=== PATIENT | female | born 1955 | race Caucasian/White ===

== ENCOUNTER 2016-10-09 17:34 | Inpatient (IN) ==
[2016-10-09 18:30] LABS: Bilirubin,Urine Small (Negative); Blood,Urine Large (Negative); Clarity,Urine Cloudy (Clear); Color,Urine Dark Yellow (Yellow); Glucose,Urine (UA) >=1000 mg/dL (Normal); Ketones,Urine Trace mg/dL (Negative); Leukocyte Esterase,Urine Moderate (Negative); Nitrite,Urine Negative (Negative); PH,Urine 5.5 pH Units (5.0-8.0); Protein,Urine 100 mg/dL (Neg-Trace); Specific Gravity,Urine 1.021 (1.010-1.025); Urobilinogen,Urine Normal (Normal)
[2016-10-09 18:32] LABS: Bacteria,Urine Many per hpf (None-Few); Hyaline Casts,Urine None Seen per lpf (None-Few); Squamous Epithelial Cell,Urine Many per lpf (None-Few); WBC,Urine 50-100 per hpf (0-3)
[2016-10-09 20:23] LABS: Basophils % 0.2 %; Hematocrit 37.6 % (35.3-44.9); Immature Granulocytes % 0.3 % (0-4); Lymphocytes # 0.7 K/mcL (0.6-4.6); Lymphocytes % 5.3 %; Mean Corpuscular HGB Conc 34.6 g/dL (31.6-35.5); Mean Corpuscular Hemoglobin 30.8 pg (28.0-33.3); Mean Corpuscular Volume 89.1 fL (83.0-100.0); Mean Platelet Volume 9.3 fL (9.4-12.4); Monocytes % 7.5 %; Neutrophils # 11.2 K/mcL (1.6-8.9); Platelet Count 214 K/mcL (140-400); Red Blood Count 4.22 M/mcL (3.82-4.97); Red Cell Distribution Width 12.9 % (11.5-14.5); Segmented Neutrophils % 86.7 %
--- NOTE | 2016-10-09 20:30 | Emergency Department Note ---
Addendum entered and electronically signed by Watson Da Silva DO 10/09/16 22:57: EKG shows sinus rhythm left axis deviation, ventricular rate 80 bpm OK 168 QRS [address] elevations or depressions. Unchanged from previous Original Note: Disposition Clinical Impression: Sepsis, Acute pyelonephritis Disposition: Admitted As Inpatient Condition: Fair Time of Disposition: 22:38 Nausea/Vomiting/Diarrhea HPI - General Chief complaint: ED Nausea/Vomiting/Diarrhea Stated complaint: N/V Time Seen by Provider: 10/09/16 20:27 Source: patient Limitations: no limitations Nursing Notes Reviewed: Yes Vital Signs Reviewed: Yes - History of Present Illness HPI Narrative: 61-year-old female not in some dependent diabetic with 3-4 days of nausea vomiting, right flank pain, and intermittent fever and chills. Patient states that she is woke up with cold sweats for the last few days. She is not taken her temperature but states that she has felt intermittently febrile. She has a history of UTIs, no history of abdominal surgeries. She has right flank pain radiating to her groin on the right side. No history of renal stones. She states her pain is 6 out of 10 and crampy and uncomfortable. Pt Subjective Complaint: nausea, vomiting Onset (ago): day(s) (3) Description of emesis: food contents Description of Diarrhea: water Associated Abdominal Pain: Yes If pain, Location of pain: flank Severity: moderate Severity scale (1-10): 6 Quality: cramping, stabbing Consistency: intermittent Improves with: nothing Worsens with: vomiting Associated symptoms: Reports: myalgias, fever/chills, headaches, nausea/ vomiting. Denies: chest pain, cough, diaphoresis, loss of appetite - Related Data Home Medications Medication Instructions Recorded Confirmed Albuterol Sulfate [Proair Hfa] 2 puff IH Q4H PRN 10/09/16 10/09/16 Celecoxib [Celebrex] 200 mg PO BID 10/09/16 10/09/16 Citalopram [CeleXA] 20 mg PO DAILY 10/09/16 10/09/16 Dapagliflozin Propanediol [Farxiga] 5 mg PO DAILY 10/09/16 10/09/16 Glimepiride [Amaryl] 2 mg PO DAILY 10/09/16 10/09/16 Losartan/Hydrochlorothiazide 1 each PO DAILY 10/09/16 10/09/16 [Hyzaar 100-25 Tablet] Metformin [Glucophage] 500 mg PO BIDWM 10/09/16 10/09/16 Mometasone/Formoterol [Dulera 100 1 puff IH BID 10/09/16 10/09/16 Mcg/5 Mcg Inhaler] Allergies Allergy/AdvReac Type Severity Reaction Status Date / Time No Known Allergies Allergy Verified 10/09/16 18:11 All systems ED: reviewed and negative except as stated. Constitutional: Reports: as per HPI, fever, chills. Denies: weakness Eyes: Denies: eye pain ENT ED: Denies: ear pain, throat pain, congestion Cardiovascular: Denies: chest pain, paroxysmal nocturnal dyspnea Respiratory: Denies: cough, dyspnea Gastrointestinal: Reports: as per HPI, abdominal pain, nausea, vomiting. Denies : diarrhea, hematemesis, melena, hematochezia Genitourinary: Reports: as per HPI, urgency, dysuria, hematuria. Denies: dyspareunia Musculoskeletal: Reports: as per HPI, back pain Neurological: Denies: headache, weakness Past Medical History - Past Medical History Attestation: Yes The following information was validated with the patient. Source: patient Medical history: Reports: COPD, diabetes, fibromyalgia, hypertension Psychiatric history: Reports: no psych history - Social History Smoking Status: Former smoker Smokeless Tobacco Status: No Alcohol use: Reports: none Drug use: Reports: none Physical Exam Constitutional: alert and oriented, in NAD, vital signs reviewed and wnl HEENT: NCAT, sclera anicteric, PERRLA bilaterally, normal external ears bilaterally, nasal septum nondeviated, average dentition, dry mucous mems Neck: normal inspection, neck is supple, trachea midline Resp: normal chest inspection, CTA bilaterally, no resp distress CV: RRR, no m/g/r GI: Mild tenderness to palpation right lower quadrant. No rebound or guarding. Positive CVA tenderness on the right. Soft abdomen bowel sounds 4 quadrants Back: normal inspection, no tenderness to palpation Neuro: A&O3, no gross motor or sensory deficits bilaterally MSK: normal inspection, bilateral UE and LE with normal ROM Psych: normal mood, normal affect Skin: No rashes, skin warm, dry, intact - General Limitations: no limitations General appearance: alert, in no apparent distress Course Course Narrative: 61-year-old female with right flank pain, fever chills afebrile here and not tachycardic however will recheck temperature given that she is low-grade 99.7, labwork ordered at triage show a white blood cell elevation 13,000, and turbid urine and many bacteria too numerous to count blood will also get a CT scan of abdomen to evaluate for nephrolithiasis, reassess giving IV fluids and antiemetics. - Reevaluation(s) Reevaluation #1: Recheck temperature does show 100.9, technically patient meets SIRS criteria with suspected stroke sources right pyelonephritis, no evidence of obstructive uropathy on CAT scan, we will start an IV 2g Ceftriaxone 2 L of IV fluids given , patient does not have hypo-tension, normal lactates will not recheck lactate, Time: 22:37 Vital Signs Temperature 99.6 F 10/09/16 18:08 Pulse Rate 64 10/09/16 18:08 Respiratory Rate 14 10/09/16 18:08 Blood Pressure 119/61 10/09/16 18:08 O2 Sat by Pulse Oximetry 97 10/09/16 18:08 Temperature 100.8 F H 10/11/16 20:56 Pulse Rate 75 10/11/16 20:56 Respiratory Rate 16 10/11/16 20:56 Blood Pressure 152/87 10/11/16 20:56 O2 Sat by Pulse Oximetry 94 L 10/11/16 20:56 Oxygen Delivery Oxygen Delivery Room Air Nausea/Vomiting/Diarrhea - MDM Narrative Medical decision making narrative: 61-year-old female with non-insulin dependent diabetes, leukocytosis, febrile at here for sepsis with sore's presumed right-sided pyelonephritis, negative CT scan started empirically on IV antibiotics for UTI and 2 L of fluids given patient stable at this time, admitted to hospital service - Differential Diagnosis Likely: traveler's diarrhea, clostridium difficile infection, drug-induced nausea and vomitting, dehydration - Medical Records Medical records reviewed: Yes I reviewed the patient's medical records. - Lab Data Lab results reviewed: Yes I reviewed the patient's lab results. Result diagrams: 10/11/16 04:26 10/11/16 04:26 Lab Results 10/09/16 10/09/16 10/09/16 Range/Units 18:20 20:12 20:12 WBC 12.9 H (4.3-11.1) K/mcL RBC 4.22 (3.82-4.97) M/mcL Hgb 13.0 (11.5-15.4) g/dL Hct 37.6 (35.3-44.9) % MCV 89.1 (83.0-100.0) fL MCH 30.8 (28.0-33.3) pg MCHC 34.6 (31.6-35.5) g/dL RDW 12.9 (11.5-14.5) % Plt Count 214 (140-400) K/mcL MPV 9.3 L (9.4-12.4) fL Immature Gran % 0.3 (0-4) % Seg Neutrophils % 86.7 % Lymphocytes % 5.3 % Monocytes % 7.5 % Eosinophils % 0.0 % Basophils % 0.2 % Neutrophils # 11.2 H (1.6-8.9) K/mcL Lymphocytes # 0.7 (0.6-4.6) K/mcL Monocytes # 1.0 (0.0-1.3) K/mcL Eosinophils # 0.0 (0.0-0.6) K/mcL Basophils # 0.0 (0.0-0.2) K/mcL Immature Plt Fraction (1.1-6.1) % Sodium 132 L (136-145) mEq/L Potassium 3.4 L (3.5-4.5) mEq/L Chloride 94 L (98-109) mEq/L Carbon Dioxide 25 (19-29) mEq/L BUN 33 H (7-20) mg/dL Creatinine 1.57 H (0.57-1.11) mg/dL Est GFR ( Amer) 40 L (> 60) Est GFR (Non-Af Amer) 33 L (> 60) BUN/Creatinine Ratio 21 (6-26) Glucose 275 H (70-99) mg/dL Est Mean Plasma Glucose mg/dl Hemoglobin A1c ( - 5.6) % Calculated Osmolality 291 (280-300) Lactic Acid (0.5-2.2) mmol/L Calcium 9.7 (8.6-10.8) mg/dL Magnesium (1.6-2.6) mg/dL Total Bilirubin 1.7 H (0.2-1.2) mg/dL Direct Bilirubin 0.8 H (0.0-0.5) mg/dL Indirect Bilirubin 0.9 (0.0-1.2) mg/dL AST 26 (5-34) Units/L ALT 39 (0-55) Units/L Alkaline Phosphatase 61 (38-126) Units/L Serum Total Protein 7.6 (6.0-8.3) g/dL Albumin 3.7 (3.5-5.0) g/dL Globulin 3.9 H (2.4-3.5) g/dL Albumin/Globulin Ratio 0.9 L (1.1-2.2) Amylase 26 (25-125) Units/L Lipase 18 (8-78) Units/L Urine Color Dark Yellow (Yellow) Urine Clarity Cloudy A (Clear) Urine pH 5.5 (5.0-8.0) pH Units Ur Specific [place] 1.021 (1.010-1.025) Urine Protein 100 H (Neg-Trace) mg/dL Urine Glucose (UA) >=1000 H (Normal) mg/dL Urine Ketones Trace H (Negative) mg/dL Urine Blood Large H (Negative) Urine Nitrite Negative (Negative) Urine Bilirubin Small H (Negative) Urine Urobilinogen Normal (Normal) mg/dL Ur Leukocyte Esterase Moderate H (Negative) Urine Microscopic RBC 5-15 H (0-3) per hpf Urine Microscopic WBC 50-100 H (0-3) per hpf Ur Squamous Epith Cells Many H (None-Few) per lpf Urine Bacteria Many H (None-Few) per hpf Hyaline Casts None Seen (None-Few) per lpf Ur Culture Indicated? YES A (NO) A. baumannii (PCR) (Not Detect) Zaira albicans (PCR) (Not Detect) C. glabrata (PCR) (Not Detect) C. krusei (PCR) (Not Detect) C. parapsilosis (PCR) (Not Detect) C. tropicalis (PCR) (Not Detect) Enterobacteriac sp PCR (Not Detect) E. cloacae complex PCR (Not Detect) Enterococcus sp PCR (Not Detect) E. coli (PCR) (Not Detect) H. influenzae (PCR) (Not Detect) Klebsiella oxytoca PCR (Not Detect) Klebsiella pneumoniae (Not Detect) List. monocytogenes PCR (Not Detect) N. meningitidis (PCR) (Not Detect) Proteus species (PCR) (Not Detect) Serratia marcescens PCR (Not Detect) Staphylococcus sp PCR (Not Detect) Staph aureus (PCR) (Not Detect) mecA-Methicil Res Gene (Not Detect) Streptococcus sp PCR (Not Detect) Group A Strep DNA (Not Detect) Group B Strep (PCR) (Not Detect) Strep pneumoniae (PCR) (Not Detect) P. aeruginosa (PCR) (Not Detect) Kian/B-Vanco Res Genes (Not Detect) KPC (blaKPC) Detect PCR (Not Detect) 10/09/16 10/09/16 10/10/16 Range/Units 21:00 21:00 04:40 WBC (4.3-11.1) K/mcL RBC (3.82-4.97) M/mcL Hgb (11.5-15.4) g/dL Hct (35.3-44.9) % MCV (83.0-100.0) fL MCH (28.0-33.3) pg MCHC (31.6-35.5) g/dL RDW (11.5-14.5) % Plt Count (140-400) K/mcL MPV (9.4-12.4) fL Immature Gran % (0-4) % Seg Neutrophils % % Lymphocytes % % Monocytes % % Eosinophils % % Basophils % % Neutrophils # (1.6-8.9) K/mcL Lymphocytes # (0.6-4.6) K/mcL Monocytes # (0.0-1.3) K/mcL Eosinophils # (0.0-0.6) K/mcL Basophils # (0.0-0.2) K/mcL Immature Plt Fraction (1.1-6.1) % Sodium (136-145) mEq/L Potassium (3.5-4.5) mEq/L Chloride (98-109) mEq/L Carbon Dioxide (19-29) mEq/L BUN (7-20) mg/dL Creatinine (0.57-1.11) mg/dL Est GFR ( Amer) (> 60) Est GFR (Non-Af Amer) (> 60) BUN/Creatinine Ratio (6-26) Glucose (70-99) mg/dL Est Mean Plasma Glucose 140 mg/dl Hemoglobin A1c 6.5 H ( - 5.6) % Calculated Osmolality (280-300) Lactic Acid 1.2 (0.5-2.2) mmol/L Calcium (8.6-10.8) mg/dL Magnesium (1.6-2.6) mg/dL Total Bilirubin (0.2-1.2) mg/dL Direct Bilirubin (0.0-0.5) mg/dL Indirect Bilirubin (0.0-1.2) mg/dL AST (5-34) Units/L ALT (0-55) Units/L Alkaline Phosphatase (38-126) Units/L Serum Total Protein (6.0-8.3) g/dL Albumin (3.5-5.0) g/dL Globulin (2.4-3.5) g/dL Albumin/Globulin Ratio (1.1-2.2) Amylase (25-125) Units/L Lipase (8-78) Units/L Urine Color (Yellow) Urine Clarity (Clear) Urine pH (5.0-8.0) pH Units Ur Specific [place] (1.010-1.025) Urine Protein (Neg-Trace) mg/dL Urine Glucose (UA) (Normal) mg/dL Urine Ketones (Negative) mg/dL Urine Blood (Negative) Urine Nitrite (Negative) Urine Bilirubin (Negative) Urine Urobilinogen (Normal) mg/dL Ur Leukocyte Esterase (Negative) Urine Microscopic RBC (0-3) per hpf Urine Microscopic WBC (0-3) per hpf Ur Squamous Epith Cells (None-Few) per lpf Urine Bacteria (None-Few) per hpf Hyaline Casts (None-Few) per lpf Ur Culture Indicated? (NO) A. baumannii (PCR) Not Detected (Not Detect) Zaira albicans (PCR) Not Detected (Not Detect) C. glabrata (PCR) Not Detected (Not Detect) C. krusei (PCR) Not Detected (Not Detect) C. parapsilosis (PCR) Not Detected (Not Detect) C. tropicalis (PCR) Not Detected (Not Detect) Enterobacteriac sp PCR DETECTED A (Not Detect) E. cloacae complex PCR Not Detected (Not Detect) Enterococcus sp PCR Not Detected (Not Detect) E. coli (PCR) DETECTED A (Not Detect) H. influenzae (PCR) Not Detected (Not Detect) Klebsiella oxytoca PCR Not Detected (Not Detect) Klebsiella pneumoniae Not Detected (Not Detect) List. monocytogenes PCR Not Detected (Not Detect) N. meningitidis (PCR) Not Detected (Not Detect) Proteus species (PCR) Not Detected (Not Detect) Serratia marcescens PCR Not Detected (Not Detect) Staphylococcus sp PCR Not Detected (Not Detect) Staph aureus (PCR) Not Detected (Not Detect) mecA-Methicil Res Gene Not Detected (Not Detect) Streptococcus sp PCR Not Detected (Not Detect) Group A Strep DNA Not Detected (Not Detect) Group B Strep (PCR) Not Detected (Not Detect) Strep pneumoniae (PCR) Not Detected (Not Detect) P. aeruginosa (PCR) Not Detected (Not Detect) Kian/B-Vanco Res Genes Not Detected (Not Detect) KPC (blaKPC) Detect PCR Not Detected (Not Detect) 10/10/16 10/10/16 Range/Units 04:40 04:40 WBC 12.9 H (4.3-11.1) K/mcL RBC 3.73 L (3.82-4.97) M/mcL Hgb 11.3 L D (11.5-15.4) g/dL Hct 33.6 L (35.3-44.9) % MCV 90.1 (83.0-100.0) fL MCH 30.3 (28.0-33.3) pg MCHC 33.6 (31.6-35.5) g/dL RDW 12.9 (11.5-14.5) % Plt Count 188 (140-400) K/mcL MPV 9.6 (9.4-12.4) fL Immature Gran % 0.5 (0-4) % Seg Neutrophils % 87.2 % Lymphocytes % 3.3 % Monocytes % 8.9 % Eosinophils % 0.0 % Basophils % 0.1 % Neutrophils # 11.2 H (1.6-8.9) K/mcL Lymphocytes # 0.4 L (0.6-4.6) K/mcL Monocytes # 1.1 (0.0-1.3) K/mcL Eosinophils # 0.0 (0.0-0.6) K/mcL Basophils # 0.0 (0.0-0.2) K/mcL Immature Plt Fraction 2.2 (1.1-6.1) % Sodium 135 L (136-145) mEq/L Potassium 3.2 L (3.5-4.5) mEq/L Chloride 99 (98-109) mEq/L Carbon Dioxide 24 (19-29) mEq/L BUN 37 H (7-20) mg/dL Creatinine 1.73 H (0.57-1.11) mg/dL Est GFR ( Amer) 36 L (> 60) Est GFR (Non-Af Amer) 30 L (> 60) BUN/Creatinine Ratio 21 (6-26) Glucose 271 H (70-99) mg/dL Est Mean Plasma Glucose mg/dl Hemoglobin A1c ( - 5.6) % Calculated Osmolality 298 (280-300) Lactic Acid (0.5-2.2) mmol/L Calcium 8.7 (8.6-10.8) mg/dL Magnesium 1.7 (1.6-2.6) mg/dL Total Bilirubin (0.2-1.2) mg/dL Direct Bilirubin (0.0-0.5) mg/dL Indirect Bilirubin (0.0-1.2) mg/dL AST (5-34) Units/L ALT (0-55) Units/L Alkaline Phosphatase (38-126) Units/L Serum Total Protein (6.0-8.3) g/dL Albumin (3.5-5.0) g/dL Globulin (2.4-3.5) g/dL Albumin/Globulin Ratio (1.1-2.2) Amylase (25-125) Units/L Lipase (8-78) Units/L Urine Color (Yellow) Urine Clarity (Clear) Urine pH (5.0-8.0) pH Units Ur Specific [place] (1.010-1.025) Urine Protein (Neg-Trace) mg/dL Urine Glucose (UA) (Normal) mg/dL Urine Ketones (Negative) mg/dL Urine Blood (Negative) Urine Nitrite (Negative) Urine Bilirubin (Negative) Urine Urobilinogen (Normal) mg/dL Ur Leukocyte Esterase (Negative) Urine Microscopic RBC (0-3) per hpf Urine Microscopic WBC (0-3) per hpf Ur Squamous Epith Cells (None-Few) per lpf Urine Bacteria (None-Few) per hpf Hyaline Casts (None-Few) per lpf Ur Culture Indicated? (NO) A. baumannii (PCR) (Not Detect) Zaira albicans (PCR) (Not Detect) C. glabrata (PCR) (Not Detect) C. krusei (PCR) (Not Detect) C. parapsilosis (PCR) (Not Detect) C. tropicalis (PCR) (Not Detect) Enterobacteriac sp PCR (Not Detect) E. cloacae complex PCR (Not Detect) Enterococcus sp PCR (Not Detect) E. coli (PCR) (Not Detect) H. influenzae (PCR) (Not Detect) Klebsiella oxytoca PCR (Not Detect) Klebsiella pneumoniae (Not Detect) List. monocytogenes PCR (Not Detect) N. meningitidis (PCR) (Not Detect) Proteus species (PCR) (Not Detect) Serratia marcescens PCR (Not Detect) Staphylococcus sp PCR (Not Detect) Staph aureus (PCR) (Not Detect) mecA-Methicil Res Gene (Not Detect) Streptococcus sp PCR (Not Detect) Group A Strep DNA (Not Detect) Group B Strep (PCR) (Not Detect) Strep pneumoniae (PCR) (Not Detect) P. aeruginosa (PCR) (Not Detect) Kian/B-Vanco Res Genes (Not Detect) KPC (blaKPC) Detect PCR (Not Detect) - Radiology Data Radiology results reviewed: Yes I reviewed the patient's radiology results. Abdomen/Pelvis CT 10/09/16 20:37 IMPRESSION: 1. No acute findings within the abdomen or pelvis. No evidence of obstructive uropathy or appendicitis. 2. Bilateral renal lesions consistent with simple cysts. No follow-up indicated. D/ / 10/09/2016 21:06:17 David Martin MD / diallo Interpreting Provider: David Martin MD Attestation Statement - Attestation Attestation: I examined this patient and my medical decision-making was reviewed with the TINNING MACHINE SET UP OPERATOR/PA/Advanced Practice Nurse/Resident Physician. I agree with the documented findings, disposition and treatment plan as described except to the extent set forth below. 61 yo female presents with concerns of fever, chills, rigor, and flank pain. Pt has mild suprapubic pain with palpation and R CVA tenderness to percussion. CT negative for uretolithiasis or other surgical pathology. +UTI on UA and pt likely has pyelonephritis. Pt likely septic and we started on IV abx and will admit to the hospital.
[2016-10-09] MEDS ORDERED: *HR* HYDROmorphone (PF) 1 MG/ML SYRINGE IV ONE (20:34)
[2016-10-09] MEDS ORDERED: 0.9 % Sodium Chloride 1,000 ML IVC ONE ×2 (20:34→21:58)
[2016-10-09] MEDS ORDERED: Ondansetron 4 MG/2 ML VIAL IV ONE (20:34)
[2016-10-09 20:37] LABS: Albumin 3.7 g/dL (3.5-5.0); Albumin/Globulin Ratio 0.9 (1.1-2.2); Bilirubin,Direct 0.8 mg/dL (0.0-0.5); Bilirubin,Indirect 0.9 mg/dL (0.0-1.2); Bilirubin,Total 1.7 mg/dL (0.2-1.2); Calcium 9.7 mg/dL (8.6-10.8); Globulin 3.9 g/dL (2.4-3.5); Potassium 3.4 mEq/L (3.5-4.5); Total Protein 7.6 g/dL (6.0-8.3)
[2016-10-10] MEDS: Acetaminophen 325 MG TABLET PO PRN ×3 (00:32→19:53)
[2016-10-10] MEDS: 0.9 % Sodium Chloride 1,000 ML IVC SCH ×4 (00:33→22:12)
[2016-10-10] MEDS ORDERED: Acetaminophen 650 MG RECTAL SUPP RC ONE (01:39)
[2016-10-10] MEDS ORDERED: *HR* Promethazine 25 MG/ML VIAL IVP PRN (03:56)
[2016-10-10] MEDS ORDERED: Naloxone 0.4 MG/ML INJ IVP PRN (03:56)
[2016-10-10] MEDS ORDERED: *HR* Morphine 2 MG/ML SYRINGE IVP PRN ×2 (04:24→11:09)
--- NOTE | 2016-10-10 04:31 | Internal Med History&Physical ---
Date of Encounter: 10/10/16 Time of Encounter: 02:30 Assessment and Plan (1) Acute pyelonephritis Current visit: Yes Status: Acute CT scan is negative for obstructive uropathy. Urine cultures are pending. Empiric treat with ceftriaxone - modify antibiotics based on the cultures. (2) Sepsis Current visit: Yes Status: Acute Secondary to pyelonephritis. Lactate is normal. Continue with IV fluids and antibiotics. Qualifiers: Sepsis type: sepsis due to unspecified organism Qualified Code(s): A41.9 - Sepsis, unspecified organism (3) Acute kidney injury Current visit: Yes Status: Acute Secondary to UTI/sepsis. Continue IV fluids. Monitor renal function. (4) Diabetes mellitus Current visit: Yes Status: Chronic Sliding scale insulin Qualifiers: Diabetes mellitus type: type 2 Diabetes mellitus complication status: with unspecified complications Diabetes mellitus termite technician insulin use: without termite technician use Qualified Code(s): E11.8 - Type 2 diabetes mellitus with unspecified complications (5) Hypertension Current visit: Yes Status: Chronic Hold antihypertensives, in view of sepsis Qualifiers: Hypertension type: essential hypertension Qualified Code(s): I10 - Essential (primary) hypertension (6) Hematuria Current visit: Yes Status: Acute Could be secondary to UTI. However she possibly needs F/U and w/u by urologist if she persists to have hematuria, after treatment of UTI (7) DVT prophylaxis Current visit: Yes Status: Acute SCDs - Pt reports hematuria and UA is positive for large blood. Internal Medicine - H&P: HPI Chief complaint: Fever; right flank pain Admitted From: Emergency Dept Plans for Post Hospital Care: Home History of present illness: Ms. Sara Puckett is a 61 year old female with past medical history significant for COPD, diabetes, fibromyalgia, hypertension - presents to the emergency department with history of fever for about 3-4 days. She reports nausea, vomiting, and right flank pain. She has hematuria but indicates that she has hematuria for longtime. She denies history of kidney stones or significant dysuria. She denies chest pain, shortness of breath, cough, expectoration, bowel changes. She was evaluated in the emergency department and was thought to have right pyelonephritis. CT scan of the abdomen was negative for obstructive uropathy. She was given ceftriaxone and IV fluids and is admitted to the hospitalist service for further workup and management. Past Med Surg Social Fam HX - Past Medical History Medical history: arthritis, COPD, diabetes, fibromyalgia, hypertension Psychiatric history: no psych history - Past Surgical History Surgical History: no surgical history - Social History Smoking Status: Former smoker Smokeless Tobacco Status: No Alcohol use: none Drug use: none - Family History Father Hx Family Endocrine Disorder: Yes (DM) Internal Medicine - H&P: Meds Albuterol Sulfate [Proair Hfa] 2 puff IH Q4H PRN 10/09/16 [History] Celecoxib [Celebrex] 200 mg PO BID 10/09/16 [History] Citalopram [CeleXA] 20 mg PO DAILY 10/09/16 [History] Dapagliflozin Propanediol [Farxiga] 5 mg PO DAILY 10/09/16 [History] Glimepiride [Amaryl] 2 mg PO DAILY 10/09/16 [History] Losartan/Hydrochlorothiazide [Hyzaar 100-25 Tablet] 1 each PO DAILY 10/09/16 [ History] Metformin [Glucophage] 500 mg PO BIDWM 10/09/16 [History] Mometasone/Formoterol [Dulera 100 Mcg/5 Mcg Inhaler] 1 puff IH BID 10/09/16 [ History] Allergies No Known Allergies Allergy (Verified 10/09/16 18:11) All Systems PM: A 10-system review of systems was performed and is negative for pertinent findings except as documented above in the HPI. - Constitutional Vitals: Temp Pulse Resp BP Pulse Ox 102.6 F H 106 18 133/72 95 10/10/16 01:40 10/10/16 01:40 10/10/16 01:40 10/10/16 01:40 10/10/16 01:40 Exam: General: Not in acute distress at the time of my evaluation HEENT: Oral mucosa is dry. No conjunctival palor or scleral icterus Neck: No obvious neck swellings Lungs: Clear to auscultation Cardiac: Regular rate and rhythm. No significant murmurs Abdomen: Right renal angle tenderness present. Bowel sounds present Genitourinary: No henson catheter Neurological: Alert and oriented. No gross localizing deficits Psych: Not aggressive or agitated Extremities: mild leg edema Skin: No generalized rash Internal Med - H&P Results - Labs CBC & Chem 7: 10/09/16 20:12 10/09/16 20:12 - EKG Data -: EKG Interpreted by Myself EKG shows normal: sinus rhythm - Impressions ITS Impressions Abdomen/Pelvis CT 10/09/16 20:37 IMPRESSION: 1. No acute findings within the abdomen or pelvis. No evidence of obstructive uropathy or appendicitis. 2. Bilateral renal lesions consistent with simple cysts. No follow-up indicated. D/ / 10/09/2016 21:06:17 David Martin MD / diallo Interpreting Provider: David Martin MD
[2016-10-10] MEDS ORDERED: Dextrose Gel 15 GM PO PRN ×2 (04:37)
[2016-10-10] MEDS ORDERED: D5% in Water 1,000 ML IVC PRN (04:37)
[2016-10-10] MEDS ORDERED: *HR* Dextrose 50 % in Water (Syg) 50 ML SYRINGE IVP PRN (04:37)
[2016-10-10 04:55] LABS: Basophils % 0.1 %; Hematocrit 33.6 % (35.3-44.9); Immature Granulocytes % 0.5 % (0-4); Immature Platelets 2.2 % (1.1-6.1); Lymphocytes # 0.4 K/mcL (0.6-4.6); Lymphocytes % 3.3 %; Mean Corpuscular HGB Conc 33.6 g/dL (31.6-35.5); Mean Corpuscular Hemoglobin 30.3 pg (28.0-33.3); Mean Corpuscular Volume 90.1 fL (83.0-100.0); Mean Platelet Volume 9.6 fL (9.4-12.4); Monocytes # 1.1 K/mcL (0.0-1.3); Monocytes % 8.9 %; Neutrophils # 11.2 K/mcL (1.6-8.9); Platelet Count 188 K/mcL (140-400); Red Blood Count 3.73 M/mcL (3.82-4.97); Red Cell Distribution Width 12.9 % (11.5-14.5); Segmented Neutrophils % 87.2 %
[2016-10-10 04:57] LABS: Hemoglobin 11.3 g/dL (11.5-15.4)
[2016-10-10 05:16] LABS: Hemoglobin A1C 6.5 %
[2016-10-10 05:21] LABS: Calcium 8.7 mg/dL (8.6-10.8); Magnesium 1.7 mg/dL (1.6-2.6); Potassium 3.2 mEq/L (3.5-4.5)
[2016-10-10] MEDS: *HR* Heparin 5,000 UNIT/ML VIAL SQ SCH ×3 (06:07→22:12)
[2016-10-10] MEDS: Insulin LISPRO 300 UNITS/3 ML VIAL SQ SCH ×4 (07:33→17:08)
--- NOTE | 2016-10-10 08:28 | Electrocardiograph Report ---
[address] [place] [address] Test Date: 2016-10-09 Pat Name: Giovanna Puckett Department: 104 Room: 3A34 Gender: F Christmas Bell Ringer: : [id number] Requested By: Watson Da Silva Order Number: [id number] Reading MD: Mike Schuster MD Measurements Intervals [place] Rate: 88 P: 46 MI: 168 QRS: -36 QRSD: 132 T: 61 QT: 379 QTc: 424 Interpretive Statements SINUS RHYTHM MARKED LEFT AXIS DEVIATION BASELINE ARTIFACT SEPTAL MYOCARDIAL INFARCTION, OF INDETERMINATE AGE Electronically Signed On 10-10-2016 8:26:30 EDT by Mike Schuster MD
[2016-10-10 12:16] LABS: Acinetobacter baumannii by PCR Not Detected (Not Detect); Candida albicans by PCR Not Detected (Not Detect); Candida glabrata by PCR Not Detected (Not Detect); Candida krusei by PCR Not Detected (Not Detect); Candida parapsilosis by PCR Not Detected (Not Detect); Candida tropicalis by PCR Not Detected (Not Detect); Enterococcus by PCR Not Detected (Not Detect); Escherichia coli by PCR ***DETECTED*** (Not Detect); Klebsiella oxytoca by PCR Not Detected (Not Detect); Klebsiella pneumoniae by PCR Not Detected (Not Detect); Pseudomonas aeruginosa by PCR Not Detected (Not Detect); Serratia marcescens by PCR Not Detected (Not Detect); Staphylococcus aureus by PCR Not Detected (Not Detect); Streptococcus agalactiae(B)PCR Not Detected (Not Detect); Streptococcus by PCR Not Detected (Not Detect); Streptococcus pneumoniae PCR Not Detected (Not Detect); Streptococcus pyogenes (A) PCR Not Detected (Not Detect); blaKPC Carbapenem-Resist Gene Not Detected (Not Detect); mecA Methicillin-Resist Gene Not Detected (Not Detect); vanA/B Vancomycin-Resist Genes Not Detected (Not Detect)
--- NOTE | 2016-10-10 13:14 | Event Note ---
Date of Encounter: 10/10/16 Time of Encounter: 10:00 61-year-old female with past medical history of diabetes mellitus, hypertension , and COPD who presented with fever and right flank pain. She is admitted with diagnosis of sepsis secondary to acute pyelonephritis. On IV ceftriaxone 2 g daily and IV fluids. Blood culture grew gram-negative rods 1/2 bottles. PLAN: 1. Sepsis 2. Acute Pyelonephritis 3. GNR bacteremia 4. Diabetes IV ceftriaxone IV fluids check blood cultures in AM might need in AM
[2016-10-10] MEDS ORDERED: 0.9 % Sodium Chloride 1,000 ML IVC ONE (13:15)
[2016-10-10] MEDS: *HR* OxyCODONE Immed Rel 5 MG TABLET PO PRN (18:57)
[2016-10-11] MEDS: *HR* OxyCODONE Immed Rel 5 MG TABLET PO PRN ×2 (01:30→15:17)
[2016-10-11 04:49] LABS: Basophils % 0.3 %; Eosinophils % 0.5 %; Hematocrit 31.5 % (35.3-44.9); Hemoglobin 10.6 g/dL (11.5-15.4); Immature Granulocytes % 0.5 % (0-4); Lymphocytes # 0.4 K/mcL (0.6-4.6); Mean Corpuscular HGB Conc 33.7 g/dL (31.6-35.5); Mean Corpuscular Hemoglobin 30.4 pg (28.0-33.3); Mean Corpuscular Volume 90.3 fL (83.0-100.0); Mean Platelet Volume 9.8 fL (9.4-12.4); Monocytes # 0.5 K/mcL (0.0-1.3); Monocytes % 8.1 %; Platelet Count 169 K/mcL (140-400); Red Blood Count 3.49 M/mcL (3.82-4.97); Red Cell Distribution Width 13.1 % (11.5-14.5); Segmented Neutrophils % 83.6 %
[2016-10-11 04:52] LABS: Neutrophils # 5.3 K/mcL (1.6-8.9)
[2016-10-11] MEDS: Acetaminophen 325 MG TABLET PO PRN ×2 (04:54→21:45)
[2016-10-11 05:04] LABS: Calcium 7.9 mg/dL (8.6-10.8); Magnesium 1.8 mg/dL (1.6-2.6); Potassium 3.5 mEq/L (3.5-4.5)
[2016-10-11] MEDS: *HR* Heparin 5,000 UNIT/ML VIAL SQ SCH ×3 (05:41→21:44)
[2016-10-11] MEDS: Insulin LISPRO 300 UNITS/3 ML VIAL SQ SCH ×4 (08:32→21:44)
--- NOTE | 2016-10-11 15:01 | Internal Med Progress Note ---
Date of Encounter: 10/11/16 Time of Encounter: 10:00 - Assessment and plan (1) Sepsis Current Visit: Yes Status: Suspected Assessment and plan: With gram-negative chintan bacteremia. Concern for Escherichia coli. On ceftriaxone. We will repeat blood cultures. Continue IV antibiotics and IV fluids. Lactic acid levels are normal. High risk for complications from this condition Qualifiers: Sepsis type: Escherichia coli Qualified Code(s): A41.51 - Sepsis due to Escherichia coli [E. coli] (2) Acute pyelonephritis Current Visit: Yes Status: Acute Assessment and plan: Most likely from Escherichia coli. Continue ceftriaxone. Await culture and sensitivities. (3) Hypertension Current Visit: Yes Status: Chronic Assessment and plan: Blood pressure is well controlled. Given current sepsis, holding antihypertensives for now Qualifiers: Hypertension type: essential hypertension Qualified Code(s): I10 - Essential (primary) hypertension (4) Diabetes mellitus Current Visit: Yes Status: Chronic Assessment and plan: Remains uncontrolled but improving. Will start long-acting insulin. Continue to monitor blood sugars. Continue diabetic diet. 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 Continue IV fluids. Continue to monitor renal function. Avoid further nephrotoxic agents. - Subjective Interval history: Patient complaining of chills and fever. Denies any nausea or vomiting. No dysuria at this time. No abdominal pain - Constitutional Vitals: Temp Pulse Resp BP Pulse Ox 99.6 F 72 16 110/66 93 L 10/11/16 11:51 10/11/16 11:51 10/11/16 11:51 10/11/16 11:51 10/11/16 11:51 General appearance: Present: cooperative, mild distress, A&O X 3, answers questions appropriately - Neck Neck exam general surgery: Present: supple, trachea midline. Absent: lymphadenopathy - Respiratory Respiratory exam: Present: CTAB. Absent: accessory muscle use, rales, rhonchi, wheezes - Cardiovascular Cardiovascular exam: Present: RRR, +S1, +S2. Absent: diastolic murmur, gallop, rubs, systolic murmur - GI/Abdominal GI/Abdominal exam: Present: normal bowel sounds, soft, no peritoneal signs. Absent: distended, tenderness - Extremities Exam Extremities exam: Present: warm, radial pulses palpable and symetrical. Absent : calf tenderness, cyanotic, pedal edema - Neurological Exam Neurological exam: Present: alert, oriented X3, no focal deficits. Absent: facial droop, speech deficit - Skin Skin exam: Present: dry, intact Internal Medicine: Result - Labs CBC & Chem 7: 10/11/16 04:26 10/11/16 04:26 Labs: Short CBC 10/11/16 Range/Units 04:26 WBC 6.3 D (4.3-11.1) K/mcL Hgb 10.6 L (11.5-15.4) g/dL Hct 31.5 L (35.3-44.9) % Plt Count 169 (140-400) K/mcL Neutrophils # 5.3 (1.6-8.9) K/mcL BMP 10/11/16 04:26 Sodium 134 L Potassium 3.5 Chloride 103 Carbon Dioxide 23 BUN 37 H Creatinine 1.37 H Glucose 195 H Calcium 7.9 L Consult Discharge Plan - Plan Referrals: Jam Lr, DO [Primary Care Provider] - - Attending Attestation This document has been at least partially created by [employer] recognition technology by Dr. Ty. Errors in grammar, wording or other phrases may exist. If errors are found after the documentation is signed, they will be addressed individually in the addendum section of this document when appropriate.
[2016-10-11] MEDS ORDERED: MOM Conc 10 ML UD.LIQ PO PRN (15:24)
[2016-10-11] MEDS ORDERED: Bisacodyl 10 MG RECTAL SUPPOSITORY RC PRN (15:27)
[2016-10-11] MEDS ORDERED: MOM Conc 10 ML UD.LIQ PO SCH (15:30)
[2016-10-11] MEDS: 0.9 % Sodium Chloride 1,000 ML IVC SCH ×2 (15:41→22:39)
[2016-10-11] MEDS ORDERED: Celecoxib 200 MG CAPSULE PO SCH (21:00)
[2016-10-11] MEDS: Insulin DETEMIR 100 UNIT/ML X5UNITS SQ SCH (21:44)
[2016-10-11] MEDS: Budesonide/Formoterol 80/4.5 MDI IH SCH (23:11)
[2016-10-12] MEDS: *HR* OxyCODONE Immed Rel 5 MG TABLET PO PRN ×4 (04:19→23:20)
[2016-10-12] MEDS: *HR* Heparin 5,000 UNIT/ML VIAL SQ SCH ×3 (06:00→21:35)
[2016-10-12 06:17] LABS: BUN/Creatinine Ratio 22 (6-26); Carbon Dioxide 24 mEq/L (19-29); Chloride 107 mEq/L (98-109); Glucose 147 mg/dL (70-99); Osmolality,Calculated 296 (280-300); Potassium 3.2 mEq/L (3.5-4.5); Sodium 140 mEq/L (136-145); eGFR For African Americans > 60 (> 60); eGFR For Non-African Americans 58 (> 60)
[2016-10-12 06:18] LABS: Blood Urea Nitrogen 21 mg/dL (7-20)
[2016-10-12] MEDS: Acetaminophen 325 MG TABLET PO PRN ×3 (07:33→14:36)
[2016-10-12] MEDS: Budesonide/Formoterol 80/4.5 MDI IH SCH ×2 (07:53→20:14)
[2016-10-12] MEDS: Insulin LISPRO 300 UNITS/3 ML VIAL SQ SCH ×4 (08:21→21:35)
[2016-10-12] MEDS: Insulin DETEMIR 100 UNIT/ML X5UNITS SQ SCH (08:21)
[2016-10-12] MEDS: 0.9 % Sodium Chloride 1,000 ML IVC SCH (09:38)
--- NOTE | 2016-10-12 16:00 | Internal Med Progress Note ---
Date of Encounter: 10/11/16 Time of Encounter: 10:05 - Assessment and plan (1) Sepsis Current Visit: Yes Status: Acute Assessment and plan: Continue IV ceftriaxone. Blood cultures positive for sensitive Escherichia coli. Repeat cultures have been negative so far. Patient appears to be clinically getting better. Qualifiers: Sepsis type: Escherichia coli Qualified Code(s): A41.51 - Sepsis due to Escherichia coli [E. coli] (2) Acute pyelonephritis Current Visit: Yes Status: Acute Assessment and plan: Due to Escherichia coli. (3) Hypertension Current Visit: Yes Status: Chronic Assessment and plan: Resume home medications now that her sepsis is improving and blood pressure is also much better. Qualifiers: Hypertension type: essential hypertension Qualified Code(s): I10 - Essential (primary) hypertension (4) Diabetes mellitus Current Visit: Yes Status: Chronic Assessment and plan: Continue current sliding scale regimen and add Levemir. Continue to monitor blood sugars and make adjustment in insulin regimen accordingly. 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 Denies any fever or chills and night sweats overnight. MAXIMUM TEMPERATURE today has been 99.6 this morning. Tolerating diet well. Denies any dysuria or abdominal pain. - Constitutional Vitals: Temp Pulse Resp BP Pulse Ox 98.3 F 73 17 131/86 94 L 10/12/16 10:52 10/12/16 10:52 10/12/16 10:52 10/12/16 10:52 10/12/16 10:52 General appearance: Present: cooperative, A&O X 3, no acute distress, answers questions appropriately - Respiratory Respiratory exam: Present: CTAB. Absent: accessory muscle use, rales, rhonchi, wheezes - Cardiovascular Cardiovascular exam: Present: RRR, +S1, +S2. Absent: diastolic murmur, gallop, rubs, systolic murmur - GI/Abdominal GI/Abdominal exam: Present: normal bowel sounds, soft, no peritoneal signs. Absent: distended, tenderness - Extremities Exam Extremities exam: Present: warm, radial pulses palpable and symetrical. Absent : calf tenderness, cyanotic, pedal edema - Skin Skin exam: Present: dry, intact Internal Medicine: Result - Labs CBC & Chem 7: 10/11/16 04:26 10/12/16 05:18 Labs: BMP 10/12/16 05:18 Sodium 140 Potassium 3.2 L Chloride 107 Carbon Dioxide 24 BUN 21 H D Creatinine 0.97 Glucose 147 H Calcium 8.0 L Consult Discharge Plan - Plan Referrals: Jam Lr, [Primary Care Provider] - 10/20/16 3:15 pm - Attending Attestation This document has been at least partially created by [employer] recognition technology by Dr. Ty. Errors in grammar, wording or other phrases may exist. If errors are found after the documentation is signed, they will be addressed individually in the addendum section of this document when appropriate.
[2016-10-12] MEDS ORDERED: *HR* LORazepam 0.5 MG TABLET PO ONE (20:18)
[2016-10-13] MEDS: *HR* OxyCODONE Immed Rel 5 MG TABLET PO PRN ×2 (06:11→14:20)
[2016-10-13] MEDS: *HR* Heparin 5,000 UNIT/ML VIAL SQ SCH ×2 (06:12→14:22)
[2016-10-13] MEDS: Insulin LISPRO 300 UNITS/3 ML VIAL SQ SCH ×2 (08:40→11:28)
[2016-10-13] MEDS ORDERED: Insulin DETEMIR 100 UNIT/ML X5UNITS SQ SCH (09:00)
[2016-10-13 10:53] VITALS: BP 132/70
[2016-10-13] MEDS: Budesonide/Formoterol 80/4.5 MDI IH SCH (11:08)
[2016-10-13] MEDS ORDERED: Celecoxib 200 MG CAPSULE PO SCH (12:09)
--- NOTE | 2016-10-13 12:11 | Discharge Summary ---
Date of Encounter: 10/11/16 Time of Encounter: 09:35 - Discharge Diagnosis (1) Sepsis Priority: Primary Status: Acute Qualifiers: Sepsis type: Escherichia coli Qualified Code(s): A41.51 - Sepsis due to Escherichia coli [E. 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 insulin use: without driver license examiner use Qualified Code(s): E11.65 - Type 2 diabetes mellitus with hyperglycemia (5) Acute kidney injury Priority: Secondary Status: Resolved - Discharge Medications Prescriptions: Levofloxacin 500 mg PO DAILY #12 tablet Losartan [Cozaar] 50 mg PO DAILY #30 tablet Home Medications: Albuterol Sulfate [Proair Hfa] 2 puff IH Q4H PRN 10/09/16 [History] Celecoxib [Celebrex] 200 mg PO BID 10/09/16 [History] Citalopram [CeleXA] 20 mg PO DAILY 10/09/16 [History] Dapagliflozin Propanediol [Farxiga] 5 mg PO DAILY 10/09/16 [History] Glimepiride [Amaryl] 2 mg PO DAILY 10/09/16 [History] Metformin [Glucophage] 500 mg PO BIDWM 10/09/16 [History] Mometasone/Formoterol [Dulera 100 Mcg/5 Mcg Inhaler] 1 puff IH BID 10/09/16 [ History] Levofloxacin 500 mg PO DAILY #12 tablet 10/13/16 [Rx] Losartan [Cozaar] 50 mg PO DAILY #30 tablet 10/13/16 [Rx] Allergies/Adverse Reactions: Allergies No Known Allergies Allergy (Verified 10/09/16 18:11) Date of admission: 10/10/16 04:53 Primary care physician: Jam Lr Discharging clinician: Shelly Ty Anticipated date of discharge: 10/13/16 - Patient Status Disposition: Home, Self-Care Condition: Good Functional capacity at discharge: independent ambulation Overall status at discharge: patient is progressing back to baseline - Discharge Instructions Instructions: Chronic Hypertension (DC), Diabetes Mellitus Type 2 in Adults (DC ), Sepsis (DC), Urinary Tract Infection in Women (DC) Follow Up With: Jam Lr DO [Primary Care Provider] - 10/20/16 3:15 pm - Diet and Activity Activity: increase activity as tolerated Diet: diabetic diet, low fat, low cholesterol, low salt diet Hospital course: Ms. Sara Puckett is a 61 year old female with history of type 2 diabetes mellituswas admitted here with sepsis from acute pyelonephritis. Her urine and blood cultures were positive for pansensitive Escherichia Coli. She was treated with IV antibiotics and has resolution of her symptoms. Her repeat blood cultures have been negative. She also had acute kidney injury on presentation. This has resolved. However, we are stopping her hydrochlorothiazide Also decreasing her losartan dosage to 50 mg by mouth daily with her blood pressure remaining well controlled. She will be discharged today on oral levofloxacin to complete a 14 day treatment course. - Time Spent with Patient Total time spent providing and/or coordinating discharge services: Greater than 30 minutes (40 min) - Constitutional Vitals: Temp Pulse Resp BP Pulse Ox 98.1 F 85 16 132/70 95 10/13/16 10:45 10/13/16 10:45 10/13/16 11:08 10/13/16 10:45 10/13/16 11:08 General appearance: Present: cooperative, A&O X 3, no acute distress, answers questions appropriately - Respiratory Respiratory exam: Present: CTAB. Absent: accessory muscle use, rales, rhonchi, wheezes - Cardiovascular Cardiovascular exam: Present: RRR, +S1, +S2. Absent: diastolic murmur, gallop, rubs, systolic murmur - GI/Abdominal GI/Abdominal exam: Present: normal bowel sounds, soft, no peritoneal signs. Absent: distended, tenderness - Attending Attestation This document has been at least partially created by [employer] recognition technology by Dr. Ty. Errors in grammar, wording or other phrases may exist. If errors are found after the documentation is signed, they will be addressed individually in the addendum section of this document when appropriate.
== END 2016-10-13 15:27 | disposition home or self-care (01) | DRG 872 ==
LOC: EMEROO 17:34 → 3ANU 17:34 → SUATTDRO 10-10 04:53
PROVIDERS: ADMIT Internal Medicine; ATTEND Internal Medicine